=== PATIENT | male | born 1950 | race Caucasian/White ===

== ENCOUNTER 2021-04-28 11:03 | Outpatient (CLI) | payer MEDICARE, BC | END 2021-04-28 11:04 | disposition home or self-care (01) | LOC: PET 11:03 | PROVIDERS: ATTEND Nurse Practitioner Acute Care | DX: G31.84 Mild cognitive impairment of uncertain or unknown etiology (principal) | CPT/HCPCS: 78803; A9552 ==

== ENCOUNTER 2023-12-15 12:49 | Outpatient (CLI) | payer MEDICARE, BC | END 2023-12-15 12:50 | disposition home or self-care (01) | LOC: EEG 12:49 | PROVIDERS: ATTEND Psychiatry & Neurology Neurology | DX: G25.3 Myoclonus (principal) | CPT/HCPCS: 95816 ==